=== PATIENT | male | born 1970 | race Caucasian/White ===

== ENCOUNTER 2024-01-21 13:08 | Emergency (ER) | payer BC ==
[2024-01-21 13:21] VITALS: TEMP 97.8
[2024-01-21 13:39] LABS: Absolute Neutrophil Ct (ANC) 2.71 x10^3/uL (1.78-5.38); BASOPHIL % 0.6 % (0.2-1.2); Basophil (Absolute #) 0.03 x10^3/uL (0.01-0.08); Eosinophil % 2.7 % (0.8-7.0); Eosinophil (Absolute #) 0.14 x10^3/uL (0.04-0.54); Hematocrit 45.6 % (40.1-51.0); Hemoglobin 15.6 g/dL (13.7-17.5); IMMATURE GRAN # 0.01 x10^3u/L (0.001-0.031); IMMATURE GRAN % 0.2 % (0.001-0.429); Lymphocyte (Absolute #) 1.84 x10^3/uL (1.32-3.57); Lymphocytes % 36.1 % (21.8-53.1); Mean Cell Volume 87.2 fL (79.0-92.2); Mean Corpuscular Hemoglobin 29.8 pg (25.7-32.2); Mean Corpuscular Hgb Concent. 34.2 g/dL (32.3-36.5); Mean Platelet Volume 9.5 fL (9.4-12.4); Monocyte (Absolute #) 0.37 x10^3/uL (0.30-0.82); Monocytes % 7.3 % (5.3-12.2); Neutrophil % 53.1 % (34.0-67.9); Platelet Count 219 x10^3/uL (163-337); Red Blood Count 5.23 x10^6/uL (4.63-6.08); Red Cell Distribution Width 12.6 % (11.6-14.4); White Blood Count 5.1 x10^3/uL (4.23-9.07)
--- NOTE | 2024-01-21 13:57 | ERPHSYRPT ---
- History of Present Illness Time Seen by Provider: 01/21/24 13:20 Historian: patient Exam Limitations: no limitations Patient Subjective Stated Complaint: pt c/o of jaw pain that radiates to his left chest and down his left arm Triage Nursing Assessment: Pt brought self to the ER, hypertensive, denies pain at this time, pulses normal, reports that he had these symptoms approx 25 years ago and had a hole in his esophagus, pulses normal, skin n/w/d, no difficulty breathing, doesn't appear to be in any distress Physician History: 53-year-old male with history of hypercholesterolemia untreated presents to our ED for evaluation of chest pain that started last night. Chest pain substernal radiates into his left arm left neck. Pain associated with diaphoresis. Patient symptoms are constant. No trauma no fever. Symptoms are moderate in intensity. No specific worsening improving factors. Patient voices no other complaints or concerns at this time. Portions of this note were created with voice recognition technology. There may be grammatical, spelling, punctuation or sound alike errors Timing/Duration: yesterday Activities at Onset: none Quality: aching Location: substernal Chest Pain Radiation: jaw, neck, arm Severity of Pain-Max: moderate Severity of Pain-Current: mild Modifying Factors: Improves With: nothing Associated Symptoms: other (Diaphoresis) Prior Chest Pain/Cardiac Workup: no prior cardiac workup Nitro Today/Relief: no nitro taken today Aspirin Treatment Today: no aspirin today Allergies/Adverse Reactions: amoxicillin [From Augmentin] Allergy (Verified 01/21/24 13:26) clavulanic acid [From Augmentin] Allergy (Verified 01/21/24 13:26) Home Medications: No Reportable Medications [No Reported Medications] 01/21/24 [History] Hx Influenza Vaccination/Date Given: Yes Hx Pneumococcal Vaccination/Date Given: No Travel Risk - International Travel Have you traveled outside of the country in past 3 weeks: No - Emerging Infectious Disease Are you exhibiting symptoms associated with any current EIDs: No - Review of Systems Constitutional: No Symptoms, No Fever, No Chills Eyes: No Symptoms Ears, Nose, & Throat: No Symptoms Respiratory: No Symptoms, No Cough, No Dyspnea Cardiac: No Symptoms, No Chest Pain, No Edema, No Syncope Abdominal/Gastrointestinal: No Symptoms, No Abdominal Pain, No Nausea, No Vomiting, No Diarrhea Genitourinary Symptoms: No Symptoms, No Dysuria Musculoskeletal: No Symptoms, No Back Pain, No Neck Pain Skin: No Symptoms, No Rash Neurological: No Symptoms, No Dizziness, No Focal Weakness, No Sensory Changes Psychological: No Symptoms Endocrine: No Symptoms Hematologic/Lymphatic: No Symptoms Immunological/Allergic: No Symptoms All Other Systems: Reviewed and Negative - Past Medical History Pertinent Past Medical History: Yes Cardiac History: High Cholesterol Other Medical History: hole in esophagus that healed on his own. intestines twisted before - Past Surgical History Past Surgical History: No Musculoskeletal: Orthopedic Surgery Other Surgical History: back surgery - Social History Smoking Status: Never smoker Exposure to second hand smoke: No Drug Use: none - Social Determinants of Health Will the patient participate in the screening: Yes Do you worry about a steady place to live?: No Do you have any problems with any of the following?: No known problems In the past 12 months,have you had to go without utilities?: No Transportation Issues: No Has anyone in your support network made you feel unsafe?: No Have you or anyone in your house had to go without enough: No - Nursing Vital Signs Nursing Vital Signs: Initial Vital Signs Temperature 97.8 F 01/21/24 13:13 Pulse Rate 76 01/21/24 13:13 Respiratory Rate 25 H 01/21/24 13:13 Blood Pressure 144/97 01/21/24 13:13 O2 Sat by Pulse Oximetry 97 01/21/24 13:13 Pain Scale Pain Intensity 2 - Physical Exam General Appearance: no apparent distress, alert Eye Exam: PERRL/EOMI, eyes nml inspection Ears, Nose, Throat Exam: normal ENT inspection, moist mucous membranes Neck Exam: normal inspection, non-tender, supple, full range of motion Respiratory Exam: normal breath sounds, lungs clear, airway intact, No respiratory distress Cardiovascular Exam: regular rate/rhythm, normal heart sounds Gastrointestinal/Abdomen Exam: soft, No tenderness, No mass Back Exam: normal inspection, No CVA tenderness, No vertebral tenderness Extremity Exam: normal inspection, normal range of motion Neurologic Exam: alert, oriented x 3, cooperative, normal mood/affect, sensation nml, No motor deficits Skin Exam: normal color, warm, dry Lymphatic Exam: No adenopathy SpO2 Interpretation: normal SpO2: 95 O2 Delivery: Room Air - Course Nursing assessment & vital signs reviewed: Yes EKG Interpreted by Me: RATE (68), Sinus Rhythm, NORMAL AXIS, NORMAL INTERVALS, Right Bundle Branch Block - Radiology Exams Chest X-ray Interpretation: Teleradiologist Report (No acute findings) Ordered Tests: Medication Summary Discontinued Medications Generic Name Dose Route Start Last Admin Trade Name Freq PRN Reason Stop Dose Admin Aspirin 324 mg 01/21/24 14:46 01/21/24 14:55 Aspirin 81 Mg Tab.Chew PO 01/21/24 14:47 324 mg STAT ONE Administration Aspirin Confirm 01/21/24 14:53 Aspirin 81 Mg Tab.Chew Administered 01/21/24 14:54 Dose 324 mg .ROUTE .STK-MED ONE Heparin Sodium (Beef Lung) 5,000 unit 01/21/24 14:46 01/21/24 14:55 Heparin 5000 Units/0.5 Ml 5,000 Unit/0.5 Ml Syr IV 01/21/24 14:47 5,000 unit STAT STA Administration Heparin Sodium (Beef Lung) Confirm 01/21/24 14:53 Heparin 5000 Units/0.5 Ml 5,000 Unit/0.5 Ml Syr Administered 01/21/24 14:54 Dose 5,000 unit .ROUTE .STK-MED ONE Nitroglycerin/Dextrose 250 mls @ 1.5 mls/hr 01/21/24 14:46 01/21/24 14:56 Ntg 0.2mg/Ml In D5w Glass IV 02/20/24 14:45 5 mcg/min .Q24H PRN 1.5 mls/hr CHEST PAIN Administration Protocol 5 MCG/MIN Heparin Sodium/Dextrose 25,000 units in 250 mls @ 12.955 mls/hr 01/21/24 15:00 01/21/24 14:56 Heparin 25,000 Units/D5w: Use Order Set Edi IV 02/20/24 14:59 12 units/kg/hr .[id number] MILLIE 12.955 mls/hr Administration Protocol 12 UNITS/KG/HR Nitroglycerin/Dextrose Confirm 01/21/24 14:55 Ntg 0.2mg/Ml In D5w Glass Administered 01/21/24 14:56 Dose 250 mls @ ud IV .STK-MED ONE Heparin Sodium/Dextrose Confirm 01/21/24 14:54 Heparin 25,000 Units/D5w: Use Order Set Edi Administered 01/21/24 14:55 Dose 25,000 units in 250 mls @ ud IV .STK-MED ONE Lab/Rad Data: Laboratory Result Diagrams 01/21/24 15:04 01/21/24 13:36 Laboratory Results 01/21/24 01/21/24 01/21/24 Range/Units 15:04 15:04 13:36 WBC 5.7 (4.23-9.07) x10^3/uL RBC 5.18 (4.63-6.08) x10^6/uL Hgb 15.7 (13.7-17.5) g/dL Hct 45.1 (40.1-51.0) % MCV 87.1 (79.0-92.2) fL MCH 30.3 (25.7-32.2) pg MCHC 34.8 (32.3-36.5) g/dL RDW 12.7 (11.6-14.4) % Plt Count 222 (163-337) x10^3/uL MPV 9.5 (9.4-12.4) fL Gran % (34.0-67.9) % Immature Gran % (Auto) (0.001-0.429) % Nucleat RBC Rel Count (0.00-0.2) % Eos # (Auto) (0.04-0.54) x10^3/uL Immature Gran # (Auto) (0.001-0.031) x10^3u/L Absolute Lymphs (auto) (1.32-3.57) x10^3/uL Absolute Monos (auto) (0.30-0.82) x10^3/uL Absolute Nucleated RBC (0.00-0.012) x10^3u/L Lymphocytes % (21.8-53.1) % Monocytes % (5.3-12.2) % Eosinophils % (0.8-7.0) % Basophils % (0.2-1.2) % Absolute Granulocytes (1.78-5.38) x10^3/uL Basophils # (0.01-0.08) x10^3/uL PT 11.4 (9.4-12.5) SECONDS INR 1.05 (0.8-3.0) APTT > 139.0 H* (25.1-36.5) SECONDS Sodium (135-145) mmol/L Potassium (3.5-5.1) mmol/L Chloride (98-107) mmol/L Carbon Dioxide (22-30) mmol/L Anion Gap (5-15) MEQ/L BUN (9-20) mg/dL Creatinine (0.66-1.25) mg/dL Estimated GFR ML/MIN Glucose (74-106) mg/dL Calcium (8.4-10.2) mg/dL Total Bilirubin (0.2-1.3) mg/dL AST (17-59) U/L ALT (0-50) U/L Alkaline Phosphatase (38-126) U/L Troponin I 0.254 H* (0.000-0.033) ng/mL NT-Pro-B Natriuret Pep (<300) pg/mL Serum Total Protein (6.3-8.2) g/dL Albumin (3.5-5.0) g/dL 01/21/24 01/21/24 Range/Units 13:36 13:36 WBC 5.1 (4.23-9.07) x10^3/uL RBC 5.23 (4.63-6.08) x10^6/uL Hgb 15.6 (13.7-17.5) g/dL Hct 45.6 (40.1-51.0) % MCV 87.2 (79.0-92.2) fL MCH 29.8 (25.7-32.2) pg MCHC 34.2 (32.3-36.5) g/dL RDW 12.6 (11.6-14.4) % Plt Count 219 (163-337) x10^3/uL MPV 9.5 (9.4-12.4) fL Gran % 53.1 (34.0-67.9) % Immature Gran % (Auto) 0.2 (0.001-0.429) % Nucleat RBC Rel Count 0.0 (0.00-0.2) % Eos # (Auto) 0.14 (0.04-0.54) x10^3/uL Immature Gran # (Auto) 0.01 (0.001-0.031) x10^3u/L Absolute Lymphs (auto) 1.84 (1.32-3.57) x10^3/uL Absolute Monos (auto) 0.37 (0.30-0.82) x10^3/uL Absolute Nucleated RBC 0.00 (0.00-0.012) x10^3u/L Lymphocytes % 36.1 (21.8-53.1) % Monocytes % 7.3 (5.3-12.2) % Eosinophils % 2.7 (0.8-7.0) % Basophils % 0.6 (0.2-1.2) % Absolute Granulocytes 2.71 (1.78-5.38) x10^3/uL Basophils # 0.03 (0.01-0.08) x10^3/uL PT (9.4-12.5) SECONDS INR (0.8-3.0) APTT (25.1-36.5) SECONDS Sodium 140 (135-145) mmol/L Potassium 4.2 (3.5-5.1) mmol/L Chloride 104 (98-107) mmol/L Carbon Dioxide 26 (22-30) mmol/L Anion Gap 14.7 (5-15) MEQ/L BUN 22 H (9-20) mg/dL Creatinine 1.08 (0.66-1.25) mg/dL Estimated GFR 81.0 ML/MIN Glucose 105 (74-106) mg/dL Calcium 10.9 H (8.4-10.2) mg/dL Total Bilirubin 0.70 (0.2-1.3) mg/dL AST 41 (17-59) U/L ALT 42 (0-50) U/L Alkaline Phosphatase 53 (38-126) U/L Troponin I (0.000-0.033) ng/mL NT-Pro-B Natriuret Pep 73.6 (<300) pg/mL Serum Total Protein 7.6 (6.3-8.2) g/dL Albumin 4.7 (3.5-5.0) g/dL - Progress Progress: improved Air Movement: good Progress Note: 53-year-old male presents to emergency department for evaluation of chest pain with radiation to his neck and his arm. Initial physical exam is nonremarkable. Initial EKG showed sinus rhythm. Troponin resulted as 0.254. During my patient update it was observed that patient experienced a short nonsustained episode of V. tach. Patient was moved to resuscitation area. Defibrillator pads applied. Repeat EKG now suggestive of inferior wall STEMI. Aspirin nitroglycerin and heparin already initiated. Patient has already been auto excepted at [facility]. In light of this change in EKG we contacted [facility] and advised them of the changes. EKGs faxed over to [facility] for cardiology review. ALS ambulance and route. Plan of care discussed with patient. He agrees to transfer to [facility] for further evaluation and treatment. Portions of this note were created with voice recognition technology. There may be grammatical, spelling, punctuation or sound alike errors Complexity of problem addressed is high acute complicated. Critical care time is [address] a [address] segment elevation myocardial infarction. IMMEDIATE ACTION required to prevent further deterioration. Complex of data reviewed and analyzed is extensive. Test ordered chest reviewed results analyzed and correlated clinically with history and physical exam. Management discussed with [facility] transfer center who auto accepts patient at 2:57 PM. The accepting physician is Dr. Ayaz Chadwick. Risk of complication and or risk of more/mortality is high. Patient requires transfer to higher level of care. Vital stable. Time spent to transfer patient is approximately 30 minutes. No social determinants of health present to impede follow-up. Portions of this note were created with voice recognition technology. There may be grammatical, spelling, punctuation or sound alike errors 01/21/24 15:06 01/22/24 21:03 Blood Culture(s) Obtained: No Antibiotics given: No Counseled pt/family regarding: lab results, diagnosis, rad results - Departure Departure Disposition: Transfer Clinical Impression: ACS (acute coronary syndrome), V tach, STEMI (ST elevation myocardial infarction) Condition: Stable Critical Care Time: Yes Critical Care Time(excluding separately billable procedures): Critical 105-134 mins Referrals: RALPH EATON MD [Primary Care Provider] - Follow up/PCP as directed
--- NOTE | 2024-01-21 14:08 | XRAY ---
Indication: Pain. Comparison: October 25, 2022 Portable chest unchanged again demonstrating normal heart and lungs with right mid lung calcified granuloma. Bony thorax intact again with minimal degenerative changes and minimal levoscoliosis. No new/acute findings.
[2024-01-21 14:09] LABS: ALBUMIN 4.7 g/dL (3.5-5.0); ANION GAP 14.7 MEQ/L (5-15); BILIRUBIN,TOTAL 0.7 mg/dL (0.2-1.3); Calcium 10.9 mg/dL (8.4-10.2); Creatinine 1 1.08 mg/dL (0.66-1.25); NT PRO BNPII 73.6 pg/mL (<300); Potassium 4.2 mmol/L (3.5-5.1); Total Protein 7.6 g/dL (6.3-8.2)
[2024-01-21 14:52] VITALS: PULSE 70; RESP 15
[2024-01-21] MEDS ORDERED: BABY ASPIRIN 81 MG CHEW ONE (14:53)
[2024-01-21] MEDS ORDERED: HEPARIN 5000 UNITS/0.5 ML (HIGH RISK MED) ONE (14:53)
[2024-01-21 14:54] VITALS: O2SAT 95
[2024-01-21] MEDS ORDERED: Heparin 25,000 units/D5W: USE ORDER SET PROTO 25,000 UNITS/250 ML BAG IV ONE (14:54)
[2024-01-21] MEDS ORDERED: Ntg 0.2MG/Ml in D5W GLASS*** 250 ML IV ONE (14:55)
[2024-01-21] MEDS: BABY ASPIRIN 81 MG CHEW PO ONE (14:55)
[2024-01-21] MEDS: HEPARIN 5000 UNITS/0.5 ML (HIGH RISK MED) IV STA (14:55)
[2024-01-21] MEDS: Ntg 0.2MG/Ml in D5W GLASS*** 250 ML IV PRN (14:56)
[2024-01-21] MEDS: Heparin 25,000 units/D5W: USE ORDER SET PROTO 25,000 UNITS/250 ML BAG IV SCH (14:56)
[2024-01-21 15:07] LABS: Hematocrit 45.1 % (40.1-51.0); Hemoglobin 15.7 g/dL (13.7-17.5); Mean Cell Volume 87.1 fL (79.0-92.2); Mean Corpuscular Hemoglobin 30.3 pg (25.7-32.2); Mean Corpuscular Hgb Concent. 34.8 g/dL (32.3-36.5); Mean Platelet Volume 9.5 fL (9.4-12.4); Platelet Count 222 x10^3/uL (163-337); Red Blood Count 5.18 x10^6/uL (4.63-6.08); Red Cell Distribution Width 12.7 % (11.6-14.4); White Blood Count 5.7 x10^3/uL (4.23-9.07)
[2024-01-21 15:11] VITALS: BP 152/95
[2024-01-21 16:24] LABS: INR 1.05 (0.8-3.0); PROTIME 11.4 SECONDS (9.4-12.5)
[2024-01-21 16:43] LABS: PTT > 139.0 SECONDS (25.1-36.5)
== END 2024-01-21 15:20 | disposition short-term general hospital (02) ==
LOC: ED 13:08
DX: I21.19 ST elevation (STEMI) myocardial infarction involving other coronary artery of inferior wall (principal); I24.9 Acute ischemic heart disease, unspecified; I47.20 Ventricular tachycardia, unspecified; R07.9 Chest pain, unspecified; E78.00 Pure hypercholesterolemia, unspecified
CPT/HCPCS: 36415; 71045; 80053; 83880; 84484; 85025; 85027; 85610; 85730; 93005; 93041; 94760; 96374; 99285; 99291; 99292; J1644; A9270-GY